=== PATIENT | female | born 1955 | race Caucasian/White ===

== ENCOUNTER 2017-02-01 08:29 | Outpatient (CLI) | payer BC ==
[2017-02-01] MEDS ORDERED: Iopamidol 370 76% 100 ML VIAL ONE (09:00)
--- NOTE | 2017-02-01 11:26 | CT ---
CT ABDOMEN WITH AND WITHOUT IV CONTRAST CT PELVIS WITH AND WITHOUT IV CONTRAST: Date: 02-01-17 History: Hematuria for three months. Comparison: 12-26-12 FINDINGS: Calcified granuloma is seen at the left lung base. Lung base otherwise clear. There is a stable subcentimeter too small to characterize hyperdense lesion in the mid portion right kidney. No enhancing renal mass is seen. No renal or ureteral calculi are seen bilaterally and ther e is no hydronephrosis. Urinary bladder is incompletely distended but is otherwise grossly normal in appearance. The liver, spleen, pancreas, bilateral adrenal glands and abdominal aorta demonstrate a normal CT ap pearance. There is a small fat containing periumbilical hernia noted. There is evidence of hysterectomy. There is heterogeneity of the osseous structures in the pelvis. This is stable when compared to the prior exam as well as the study in 2010, probably related to trabecular pattern. Degenerative change s are seen at the L4-5 level. IMPRESSION: 1. Subcentimeter too small to characterize hypodense lesion right kidney. No enhancing renal mass is seen. 2. No renal or ureteral calculi are seen bilaterally. No filling defects are seen in the collecting systems or visualized opacified ureters. 3. Small fat containing periumbilical hernia. POS: [facility]
== END 2017-02-01 08:30 | disposition home or self-care (01) ==
LOC: NAV CT 08:29
PROVIDERS: ATTEND Urology
DX: R31.0 Gross hematuria (principal); K42.9 Umbilical hernia without obstruction or gangrene; N28.89 Other specified disorders of kidney and ureter
CPT/HCPCS: 36415; 74178; 82565

== ENCOUNTER 2017-05-18 09:52 | Emergency (ER) | payer BC ==
[2017-05-18] MEDS ORDERED: Acetaminophen 500 MG TAB ONE (10:56)
[2017-05-18] MEDS ORDERED: Oseltamivir 75 MG CAP ONE (10:56)
== END 2017-05-18 11:02 | disposition home or self-care (01) ==
LOC: NAV ERS 09:52
DX: J06.9 Acute upper respiratory infection, unspecified (principal); F41.9 Anxiety disorder, unspecified; F32.9 Major depressive disorder, single episode, unspecified; Z79.899 Other long term (current) drug therapy
CPT/HCPCS: 99283